=== PATIENT | female | born 1995 | race African-American/Black ===

== ENCOUNTER 2025-02-14 03:55 | Inpatient (IN) | payer OTHER ==
[~2025-02-14] VITALS: Ht 157.5 cm; Wt 77.6 kg
[2025-02-14 04:01] VITALS: O2SAT 100
[2025-02-14] MEDS: ACETAMINOPHEN 325MG TABLET PO ONE (04:44)
[2025-02-14 05:40] LABS: HCG SCREEN NEGATIVE
[2025-02-14 06:29] LABS: BASOPHILS % 0.4 % (0.0-2.0); EOSINOPHILS % 0.4 % (0.0-5.0); HEMATOCRIT. 35.3 % (36.0-48.0); HEMOGLOBIN. 11.5 g/dL (12.0-16.0); LYMPHOCYTES % 18.7 % (20.0-50.0); MONOCYTES % 2.6 % (2.0-8.0); NEUTROPHILS % 77.9 % (40.0-76.0); RED BLOOD CELL COUNT 3.89 mill/uL (4.2-5.4); RED CELL DISTRIBUTION WIDTH 15.5 % (11.6-14.6)
[2025-02-14 07:08] LABS: CREATININE 0.9 mg/dL (0.6-1.0); UREA NITROGEN BLOOD 13 mg/dL (9-23)
[2025-02-14 08:00] VITALS: BP 113/77; PULSE 61; RESP 18; TEMP 36.7; O2SAT 99
[2025-02-14 08:10] LABS: PLATELET 76 x1000/uL (130-400)
[2025-02-14 08:47] LABS: TROPONIN I HIGH SENSITIVITY 6 ng/L (3.0-34)
[2025-02-14 12:00] VITALS: BP 99/62; PULSE 68; RESP 18; TEMP 37.2; O2SAT 100
[2025-02-14] MEDS ORDERED: ONDANSETRON HCL 4MG/2ML INJ IV PRN (12:45)
[2025-02-14] MEDS ORDERED: MAGNESIUM/ALUMINUM HYDROXIDE/SIMETHICONE 30ML UDC PO PRN (12:45)
[2025-02-14] MEDS ORDERED: ACETAMINOPHEN 325MG TABLET PO PRN ×2 (12:45)
[2025-02-14] MEDS ORDERED: ZOLPIDEM TARTRATE 5MG TABLET PO PRN (12:45)
[2025-02-14] MEDS ORDERED: DIPHENHYDRAMINE 50MG/ML VIAL IV PRN (12:45)
[2025-02-14 12:49] VITALS: BP 99/62; PULSE 16; RESP 18; TEMP 36.4
[2025-02-14] MEDS: MVI, ADULT NO.1 10 ML, FOLIC ACID 1 MG, THIAMINE HCL 100 MG in SODIUM CHLORIDE 0.9% 1,0... IV SCH (14:30)
[2025-02-14 16:00] VITALS: BP 102/76; PULSE 69; RESP 18; TEMP 36.6; O2SAT 100
[2025-02-14 16:46] LABS: CLARITY URINE CLEAR (CLEAR); COLOR URINE YELLOW (YELLOW); GLUCOSE URINE NEGATIVE (NEGATIVE); KETONES URINE NEGATIVE (NEGATIVE); LEUKOCYTE ESTERASE URINE NEGATIVE (NEGATIVE); NITRITE URINE NEGATIVE (NEGATIVE); OCCULT BLOOD URINE NEGATIVE (NEGATIVE); PH URINE 7.5 (4.5-8.0); PROTEIN URINE TRACE (NEGATIVE); SPECIFIC GRAVITY URINE 1.034 (1.005-1.030); UROBILINOGEN URINE 1.0 E.U./dL (0.2-1.0)
[2025-02-14 17:17] LABS: *AMPHETAMINES SCREEN URINE NEGATIVE (NEGATIVE); *BARBITURATES SCREEN URINE NEGATIVE (NEGATIVE); *BENZODIAZEPINES SCREEN URINE NEGATIVE (NEGATIVE); *COCAINE SCREEN URINE NEGATIVE (NEGATIVE); CANNABINOID URINE SCREEN NEGATIVE (NEGATIVE); ECSTASY MDMA SCREEN URINE NEGATIVE (NEGATIVE); METHADONE URINE SCREEN NEGATIVE (NEGATIVE); OPIATES URINE SCREEN NEGATIVE (NEGATIVE); PHENCYCLIDINE URINE SCREEN NEGATIVE (NEGATIVE)
[2025-02-14 17:37] LABS: BACTERIA URINE 1+; RBC URINE 0-2 /hpf (0-2); SQUAMOUS EPITHELIAL CELL URINE RARE /lpf (RARE/1+); WBC URINE 0-2 /hpf (0-2)
[2025-02-15] MEDS ORDERED: IOHEXOL-350 100 ML BOTTLE ONE (00:57)
== END 2025-02-14 18:30 | disposition home or self-care (01) | DRG 313 ==
LOC: ER 03:55 → 5WST 08:33 → EDBEDREQ 08:34 → ENRESERV 08:50
PROVIDERS: ADMIT Internal Medicine; ATTEND Internal Medicine
DX: R07.89 Other chest pain (principal); E87.6 Hypokalemia; R06.02 Shortness of breath; M54.9 Dorsalgia, unspecified; Z88.2 Allergy status to sulfonamides
CPT/HCPCS: 36415; 71045; 71275; 80048; 80305; 81003; 83880; 84484; 84703; 85025; 85379; 93005; 99291; A4606; J3411; J3490; J7030; Q9967